=== PATIENT | male | born 1995 | race African-American/Black ===

== ENCOUNTER 2022-03-01 23:39 | Emergency (ER) | payer MEDICAID ==
[~2022-03-01] VITALS: Ht 193 cm; Wt 109.0 kg
[2022-03-01 23:46] VITALS: BP 140/90
== END 2022-03-02 00:01 | disposition left against medical advice (07) ==
LOC: ER 23:57
DX: Z53.21 Procedure and treatment not carried out due to patient leaving prior to being seen by health care provider (principal)